=== PATIENT | male | born 1960 | race Caucasian/White ===

== ENCOUNTER 2016-10-27 11:57 | Emergency (ER) | payer SELFPAY ==
[2016-10-27 11:58] VITALS: BP 180/94; PULSE 81; RESP 18; TEMP 98.5; O2SAT 98
== END 2016-10-27 13:31 | disposition left against medical advice (07) ==
LOC: NED 11:57
DX: Z53.21 Procedure and treatment not carried out due to patient leaving prior to being seen by health care provider (principal)
CPT/HCPCS: 99281

== ENCOUNTER 2016-11-02 12:41 | Inpatient (IN) | payer SELFPAY ==
[~2016-11-02] VITALS: Ht 177.8 cm; Wt 85.0 kg
[2016-11-02 12:44] VITALS: BP 159/68; PULSE 80; RESP 15; TEMP 98.4; O2SAT 99
--- NOTE | 2016-11-02 12:58 | PD ---
Physical Exam Time Seen by Provider: 12:57 Narrative 56 y/o male here for evaluation of L leg redness, pain, for 3 weeks. Sent from urgent care. Vital signs reviewed. Seen at triage desk. Awaiting bed placement. Data Data Last Documented VS Vital Signs Date Time Temp Pulse Resp B/P Pulse Ox O2 Delivery O2 Flow Rate FiO2 11/02/16 12:44 98.4 80 15 159/68 99 MDM Medical Record Reviewed: Yes Supervised Visit with LADONNA: Jeremy Richards Nov 02, 2016 12:58
[2016-11-02] MEDS ORDERED: PIPERACIL-TAZO 4.5 GM PREMIX 100 ML IV STA (14:41)
[2016-11-02] MEDS ORDERED: VANCOMYCIN INJ 1,000 MG in SODIUM CHLOR 0.9% 250 ML INJ 250 ML IV STA (14:41)
[2016-11-02] MEDS ORDERED: DIVA250ER PO (14:42)
[2016-11-02] MEDS ORDERED: SERO25TA PO (14:42)
[2016-11-02 15:34] LABS: AUTOMATED NEUTROPHIL # 6.3 TH/MM3 (1.8-7.7); BASOPHIL # 0.1 TH/MM3 (0-0.2); BASOPHIL % 0.8 % (0.0-2.0); EOSINOPHIL # 0.4 TH/MM3 (0-0.4); EOSINOPHIL % 3.4 % (0.0-4.0); HEMO FLAGS DIFF FINAL; LYMPH % 24.2 % (9.0-44.0); LYMPHOCYTE # 2.6 TH/MM3 (1.0-4.8); MEAN CELL VOLUME 89.8 FL (80.0-100.0); MEAN CORPUSCULAR HEMOGLOBIN 31.1 PG (27.0-34.0); MEAN CORPUSCULAR HGB CONC 34.6 % (32.0-36.0); MONO % 11.7 % (0.0-8.0); NEUT % 59.9 % (16.0-70.0); PLATELET COUNT 275 TH/MM3 (150-450); RED BLOOD COUNT 5.23 MIL/MM3 (4.50-5.90); RED CELL DISTRIBUTION WIDTH 14.2 % (11.6-17.2); WHITE BLOOD COUNT 10.6 TH/MM3 (4.0-11.0)
--- NOTE | 2016-11-02 15:40 | RADRPT ---
EXAM DATE/TIME: 11/02/2016 14:56 [facility] COMPARISON: No previous studies available for comparison. INDICATIONS : Swelling in left leg with redness and pain. MEDICAL HISTORY : Brain aneurysm. Cellulitis in left leg. SURGICAL HISTORY : Right knee replacement. ENCOUNTER: Initial ACUITY: 3 weeks PAIN SCORE: 5/10 LOCATION: Left leg. TECHNIQUE: Venous ultrasound of the leg was performed from the inguinal ligament to the proximal calf. Real-patrick e, color Doppler and spectral tracing, compression and augmentation techniques were used. FINDINGS: There is normal compressibility of the deep venous system from the inguinal region to the proximal ca lf. No echogenic clot is seen in the lumen of the common femoral, femoral, popliteal, and posterior tibial veins. There is a normal response of the venous system to proximal and distal augmentation an d respiration. CONCLUSION: Normal examination. Go Li MD on November 02, 2016 at 15:39 Board Certified Radiologist. This report was verified electronically.
[2016-11-02 15:51] LABS: APTT (PATIENT) 28.2 SEC (24.3-30.1); INTERNATIONAL NORMALIZED RATIO 0.9 RATIO; PROTHROMBIN TIME - PATIENT 10.4 SEC (9.8-11.6)
--- NOTE | 2016-11-02 15:51 | PD ---
HPI Chief Complaint: Skin Problem Time Seen by Provider: 14:30 Travel History International Travel<30 days: No Contact w/Intl Traveler<30days: No Traveled to known affect area: No History of Present Illness HPI Patient is a 56-year-old male presenting to emergency room for evaluation of left lower leg redness and swelling. Patient states he hit it 3 weeks ago, he has been cleaning it with peroxide and topical antibiotic ointment however it continues to get more red and swollen so he presented to an urgent care clinic in [place] who referred him to the emergency department. Patient states the pain is a 7 out of 10 and describes as aching and throbbing. He denies any fever, chills, weakness, drainage. Patient's past medical history significant for bipolar disorder, brain aneurysm. He is a daily tobacco user. PFSH Past Medical History Bipolar Disorder: Yes Depression: Yes Neurologic: Yes (BRAIN ANEURYSM ) Tetanus Vaccination: > 5 Years Influenza Vaccination: No Past Surgical History Other Surgery: Yes (knee replacement) Social History Alcohol Use: No Tobacco Use: Yes Substance Use: Yes (CANNABIS ) Allergies-Medications (Allergen,Severity, Reaction): Coded Allergies: Novocain (Verified Allergy, Unknown, 11/02/16) Reported Meds & Prescriptions Reported Meds & Active Scripts Active Reported Seroquel (Quetiapine Fumarate) 25 Mg Tab 25 Mg PO PRN Depakote ER (Divalproex Sodium) 250 Mg Mark 750 Mg PO DAILY Review of Systems Except as stated in HPI: all other systems reviewed are Neg General / Constitutional: No: Fever, Chills HENT: No: Headaches Cardiovascular: No: Chest Pain or Discomfort Respiratory: No: Shortness of Breath Gastrointestinal: No: Nausea, Vomiting, Abdominal Pain Musculoskeletal: Positive: Myalgias, Edema, Pain Skin: Positive Change in Pigmentation, Positive Lesions Physical Exam Narrative GENERAL: Well-developed, well-nourished, alert male. Resting in no acute distress. SKIN: Warm and dry. Left lower leg has a scabbed lesion to the anterior aspect just distal to the knee, a second scabbed lesion on the proximal lateral aspect of the left lower leg, and slightly distal to that is a fourth scabbed lesion. Left lower leg is warm, erythematous, edematous. Left pedal pulse is audible with Doppler. No exudate or drainage noted from wound. HEAD: Atraumatic. Normocephalic. EYES: Pupils equal and round. No scleral icterus. No injection or drainage. ENT: No nasal bleeding or discharge. Mucous membranes pink and moist. NECK: Trachea midline. No JVD. CARDIOVASCULAR: Regular rate and rhythm. RESPIRATORY: No accessory muscle use. Clear to auscultation. Breath sounds equal bilaterally. GASTROINTESTINAL: Abdomen soft, non-tender, nondistended. Hepatic and splenic margins not palpable. MUSCULOSKELETAL: Extremities without clubbing, cyanosis. No obvious deformities. Negative Homans sign on the left. NEUROLOGICAL: Awake and alert. No obvious cranial nerve deficits. Motor grossly within normal limits. Five out of 5 muscle strength in the arms and legs. Normal speech. PSYCHIATRIC: Appropriate mood and affect; insight and judgment normal. Data Data Last Documented VS Vital Signs Date Time Temp Pulse Resp B/P Pulse Ox O2 Delivery O2 Flow Rate FiO2 11/02/16 16:10 75 21 176/88 97 Room Air 11/02/16 12:44 98.4 Orders Complete Blood Count With Diff (11/02/16 14:41) Comprehensive Metabolic Panel (11/02/16 14:41) Prothrombin Time / Inr (Pt) (11/02/16 14:41) Act Partial Throm Time (Ptt) (11/02/16 14:41) Lactic Acid Sepsis Protocol (11/02/16 14:41) Blood Culture (11/02/16 14:41) Ecg Monitoring (11/02/16 14:41) Iv Access Insert/Monitor (11/02/16 14:41) Oximetry (11/02/16 14:41) Piperacil-Tazo 4.5 Gm Premix (Zosyn 4.5 (11/02/16 14:41) Vancomycin Inj (Vancomycin Inj) (11/02/16 14:41) Westergren Sedimentation Rate (11/02/16 14:41) C-Reactive Protein (Crp) (11/02/16 14:41) Us Leg Venous Doppler (11/02/16 ) Tibia/Fibula (Ap/Lat) (11/02/16 ) Admit Order (Ed Use Only) (11/02/16 17:04) Labs Laboratory Tests Test 11/02/16 15:00 White Blood Count 10.6 TH/MM3 Red Blood Count 5.23 MIL/MM3 Hemoglobin 16.3 GM/DL Hematocrit 47.0 % Mean Corpuscular Volume 89.8 FL Mean Corpuscular Hemoglobin 31.1 PG Mean Corpuscular Hemoglobin 34.6 % Concent Red Cell Distribution Width 14.2 % Platelet Count 275 TH/MM3 Mean Platelet Volume 7.9 FL Neutrophils (%) (Auto) 59.9 % Lymphocytes (%) (Auto) 24.2 % Monocytes (%) (Auto) 11.7 % Eosinophils (%) (Auto) 3.4 % Basophils (%) (Auto) 0.8 % Neutrophils # (Auto) 6.3 TH/MM3 Lymphocytes # (Auto) 2.6 TH/MM3 Monocytes # (Auto) 1.2 TH/MM3 Eosinophils # (Auto) 0.4 TH/MM3 Basophils # (Auto) 0.1 TH/MM3 CBC Comment DIFF FINAL Differential Comment Erythrocyte Sedimentation Rate 11 mm/hr Prothrombin Time 10.4 SEC Prothromb Time International 0.9 RATIO Ratio Activated Partial 28.2 SEC Thromboplast Time Sodium Level 138 MEQ/L Potassium Level 4.0 MEQ/L Chloride Level 103 MEQ/L Carbon Dioxide Level 27.5 MEQ/L Anion Gap 8 MEQ/L Blood Urea Nitrogen 17 MG/DL Creatinine 0.66 MG/DL Estimat Glomerular Filtration 125 ML/MIN Rate Random Glucose 100 MG/DL Lactic Acid Level 1.2 mmol/L Calcium Level 8.6 MG/DL Total Bilirubin 0.3 MG/DL Aspartate Amino Transf 19 U/L (AST/SGOT) Alanine Aminotransferase 32 U/L (ALT/SGPT) Alkaline Phosphatase 119 U/L C-Reactive Protein 2.59 MG/DL Total Protein 7.7 GM/DL Albumin 3.5 GM/DL MDM Medical Decision Making Medical Screen Exam Complete: Yes Emergency Medical Condition: Yes Interpretation(s) Last Impressions Lower Extremity Ultrasound 11/02/16 0000 Signed Impressions: Service Date/Time: Wednesday, November 02, 2016 14:56 - CONCLUSION: Normal examination. Go Li MD Laboratory Tests Test 11/02/16 15:00 White Blood Count 10.6 TH/MM3 Red Blood Count 5.23 MIL/MM3 Hemoglobin 16.3 GM/DL Hematocrit 47.0 % Mean Corpuscular Volume 89.8 FL Mean Corpuscular Hemoglobin 31.1 PG Mean Corpuscular Hemoglobin 34.6 % Concent Red Cell Distribution Width 14.2 % Platelet Count 275 TH/MM3 Mean Platelet Volume 7.9 FL Neutrophils (%) (Auto) 59.9 % Lymphocytes (%) (Auto) 24.2 % Monocytes (%) (Auto) 11.7 % Eosinophils (%) (Auto) 3.4 % Basophils (%) (Auto) 0.8 % Neutrophils # (Auto) 6.3 TH/MM3 Lymphocytes # (Auto) 2.6 TH/MM3 Monocytes # (Auto) 1.2 TH/MM3 Eosinophils # (Auto) 0.4 TH/MM3 Basophils # (Auto) 0.1 TH/MM3 CBC Comment DIFF FINAL Differential Comment Erythrocyte Sedimentation Rate 11 mm/hr Prothrombin Time 10.4 SEC Prothromb Time International 0.9 RATIO Ratio Activated Partial 28.2 SEC Thromboplast Time Sodium Level 138 MEQ/L Potassium Level 4.0 MEQ/L Chloride Level 103 MEQ/L Carbon Dioxide Level 27.5 MEQ/L Anion Gap 8 MEQ/L Blood Urea Nitrogen 17 MG/DL Creatinine 0.66 MG/DL Estimat Glomerular Filtration 125 ML/MIN Rate Random Glucose 100 MG/DL Lactic Acid Level 1.2 mmol/L Calcium Level 8.6 MG/DL Total Bilirubin 0.3 MG/DL Aspartate Amino Transf 19 U/L (AST/SGOT) Alanine Aminotransferase 32 U/L (ALT/SGPT) Alkaline Phosphatase 119 U/L C-Reactive Protein 2.59 MG/DL Total Protein 7.7 GM/DL Albumin 3.5 GM/DL Vital Signs Date Time Temp Pulse Resp B/P Pulse Ox O2 Delivery O2 Flow Rate FiO2 11/02/16 12:44 98.4 80 15 159/68 99 Differential Diagnosis Cellulitis versus sepsis versus DVT versus osteomyelitis versus other Narrative Course Patient is a 56-year-old male presenting for evaluation of left lower leg redness and swelling that has been ongoing and worsening over the last 2-3 weeks. Vital signs are stable, labs and imaging ordered and pending. IV access established, patient placed on telemetry monitoring and continuous pulse oximetry. Left pedal pulse was audible with Doppler. Ultrasound the left lower leg is negative for DVT Blood cultures ordered and pending CBC with a white count of 10.6 Sedimentation rate is 11 CRP 2.59 Lactic acid 1.2 Chemistry is otherwise unremarkable with no acute findings. Patient was given Zosyn and vancomycin empirically. Discussed with residents who accepted admission. Admit orders placed. Patient is agreeable. Diagnosis Primary Impression: Cellulitis Qualified Code: L03.116 - Cellulitis of left lower extremity Admitting Information Admitting Physician Requests: Admit Condition: Stable Gina Padron CODE NUMBER STAMPER Nov 02, 2016 15:51
[2016-11-02 15:54] LABS: ALKALINE PHOSPHATASE 119 U/L (45-117); TOTAL BILIRUBIN ADULT 0.3 MG/DL (0.2-1.0)
[2016-11-02 15:58] LABS: ALT (GPT) 32 U/L (12-78); ANION GAP 8 MEQ/L (5-15); AST (GOT) 19 U/L (15-37); BICARBONATE 27.5 MEQ/L (21.0-32.0); BLOOD UREA NITROGEN 17 MG/DL (7-18); CHLORIDE 103 MEQ/L (98-107); GLOMERULAR FILTRATION RATE 125 ML/MIN (>89); SODIUM (NA) 138 MEQ/L (136-145)
[2016-11-02 16:10] VITALS: BP 176/88; PULSE 75; RESP 21; O2SAT 97
[2016-11-02] MEDS ORDERED: Vancomycin Consult Pharmacy 1 EA OTHER SCH (17:15)
[2016-11-02] MEDS ORDERED: KETOROLAC TROMETHAMINE 30 MG/ML (IVP) VIAL IVP PRN (17:15)
[2016-11-02] MEDS ORDERED: ACETAMINOPHEN 500 MG CPLT PO PRN (17:15)
[2016-11-02] MEDS ORDERED: ONDANSETRON HCL 4 MG/2 ML VIAL IVP PRN (17:15)
[2016-11-02] MEDS ORDERED: BISACODYL 10 MG SUPP RECTAL PRN (17:15)
[2016-11-02] MEDS ORDERED: SENNOSIDES 8.6 MG TAB PO PRN (17:15)
[2016-11-02] MEDS ORDERED: TEMAZEPAM 15 MG CAP PO PRN (17:15)
[2016-11-02] MEDS ORDERED: MAGNESIUM HYDROXIDE SUSP 30 ML CUP PO PRN (17:15)
[2016-11-02] MEDS ORDERED: SODIUM CHLORIDE 0.9% FLUSH 10 ML FLUSH IV FLUSH PRN (17:15)
[2016-11-02] MEDS ORDERED: LACTULOSE SYRUP 20 GM/30 ML CUP PO PRN (17:15)
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
--- NOTE | 2016-11-02 17:40 | RADRPT ---
EXAM DATE/TIME: 11/02/2016 17:18 [facility] COMPARISON: No previous studies available for comparison. INDICATIONS : Left lower leg pain and swelling. Possible infection. MEDICAL HISTORY : None. SURGICAL HISTORY : None. ENCOUNTER: Initial ACUITY: 2 weeks PAIN SCORE: 10/10 LOCATION: Left lower leg. FINDINGS: Two view examination of the left tibia demonstrates no evidence of fracture or dislocation. Bony min eralization is normal. The soft tissue structures are swollen distally. CONCLUSION: 1. Soft tissue swelling left leg. No bony abnormality identified. Jonathan Padron MD on November 02, 2016 at 17:38 Board Certified Radiologist. This report was verified electronically.
[2016-11-02] MEDS ORDERED: cloNIDine HCL 0.1 MG TAB PO PRN (18:15)
[2016-11-02] MEDS: REMOVE OLD PATCH T-DERMAL SCH (21:00)
[2016-11-02] MEDS: DOCUSATE SODIUM 50 MG/SENNA 8.6 MG TAB PO SCH (21:00)
[2016-11-02 21:07] VITALS: BP 162/96; PULSE 76; RESP 20; TEMP 97.6; O2SAT 95
[2016-11-02] MEDS ORDERED: ACETAMINOPHEN 325 MG TAB PO PRN (21:15)
[2016-11-02] MEDS: VANCOMYCIN INJ 1,000 MG in SODIUM CHLOR 0.9% 250 ML INJ 250 ML IV SCH (23:50)
[2016-11-02] MEDS: HYDROCHLOROTHIAZIDE 12.5 MG CAP PO SCH (23:51)
[2016-11-02] MEDS: QUEtiapine FUMARATE 25 MG TAB PO SCH (23:51)
[2016-11-02] MEDS: HEPARIN SODIUM - SQ 10,000 UNITS/ML VIAL SQ SCH (23:54)
[2016-11-02] MEDS: SODIUM CHLORIDE 0.9% FLUSH 10 ML FLUSH IV FLUSH SCH (23:56)
[2016-11-03] VITALS: BP 136/79; PULSE 84; RESP 18; TEMP 98.4; O2SAT 95
[2016-11-03 07:13] LABS: AUTOMATED NEUTROPHIL # 5.3 TH/MM3 (1.8-7.7); BASOPHIL # 0.1 TH/MM3 (0-0.2); BASOPHIL % 0.8 % (0.0-2.0); EOSINOPHIL # 0.3 TH/MM3 (0-0.4); EOSINOPHIL % 3.4 % (0.0-4.0); HEMO FLAGS DIFF FINAL; LYMPHOCYTE # 2.9 TH/MM3 (1.0-4.8); MEAN CELL VOLUME 90.1 FL (80.0-100.0); MEAN CORPUSCULAR HEMOGLOBIN 30.9 PG (27.0-34.0); MEAN CORPUSCULAR HGB CONC 34.3 % (32.0-36.0); NEUT % 54.8 % (16.0-70.0); PLATELET COUNT 258 TH/MM3 (150-450); RED BLOOD COUNT 4.99 MIL/MM3 (4.50-5.90); RED CELL DISTRIBUTION WIDTH 14.1 % (11.6-17.2); WHITE BLOOD COUNT 9.6 TH/MM3 (4.0-11.0)
[2016-11-03 07:29] LABS: BICARBONATE 25.6 MEQ/L (21.0-32.0); POTASSIUM 3.8 MEQ/L (3.5-5.1)
[2016-11-03 08:00] VITALS: BP 136/86; PULSE 72; RESP 18; TEMP 96.2; O2SAT 95
[2016-11-03] MEDS: SODIUM CHLORIDE 0.9% FLUSH 10 ML FLUSH IV FLUSH SCH ×2 (08:38→20:43)
[2016-11-03] MEDS: DOCUSATE SODIUM 50 MG/SENNA 8.6 MG TAB PO SCH ×2 (08:39→20:47)
[2016-11-03] MEDS: HEPARIN SODIUM - SQ 10,000 UNITS/ML VIAL SQ SCH ×2 (08:39→17:02)
[2016-11-03] MEDS: QUEtiapine FUMARATE 25 MG TAB PO SCH (08:40)
[2016-11-03] MEDS: VANCOMYCIN INJ 1,000 MG in SODIUM CHLOR 0.9% 250 ML INJ 250 ML IV SCH ×2 (08:40→17:01)
[2016-11-03] MEDS: HYDROCHLOROTHIAZIDE 12.5 MG CAP PO SCH (08:46)
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
[2016-11-03] MEDS ORDERED: DIVALPROEX SODIUM E.R. 250 MG TAB PO SCH (09:00)
[2016-11-03] MEDS ORDERED: NICOTINE 21 MG/24 HR PATCH T-DERMAL SCH (09:00)
[2016-11-03 12:00] VITALS: BP 148/86; PULSE 80; RESP 18; TEMP 95.3; O2SAT 95
[2016-11-03] MEDS ORDERED: PHARMACY ORDERED LAB ONE (15:45)
[2016-11-03 16:00] VITALS: BP 154/88; PULSE 79; RESP 18; TEMP 97; O2SAT 98
--- NOTE | 2016-11-03 16:12 | PD.WCN.NOT ---
Wound Consult Description: Wounds to L anterior peraza and Lateral lower leg. Dry scabs to L lateral upper calf Communicated with: [facility] [address] [place] [address] and Call placed to Doctor Byrne for orders Recommendation: Please open wounds to L lateral lower leg and L anterior peraza with normal saline. Please apply single layer Xeroform just over opened wounds, not over periwound scab. Cover with dry 4x4 gauze pads and secure with rolled gauze and tape. Change dressings every other day or PRN if saturated or dislodged. Additional Information: Patient seen on [address] [place] [address] for evaluation of wound management to L leg. Patient L leg wounds noted open to air. Wound to L anterior peraza presents with 100% coverage dry dark red tissue. Periwound is noted with dry scab from 4 to 9 o' clock and erythema that is circumferential. Wound is dry with out active drainage or odor. Wound to L lateral lower leg also presents with 100% dark red dry tissue that is without active drainage or odor. Periwound also presents with scab and circumferential erythema. Wound culture obtained from L leg wound is positive for Rare WBC, and many gram positive cocci in pairs and clusters. Patient is being treated for infection with IV antibiotic Vancomycin. L L lower leg is noted edema. Scabs with periwound erythema also assessed on L lateral upper calf area. Cleansed open wounds to L lateral leg and anterior peraza with normal saline and applied single layer Xeroform just over open wounds and covered with dry 4x4 gauze pads. Secured dressing with rolled gauze and tape. Discussed the importance of elevating L lower extremity to reduce edema with patient. Patient verbalizes understanding and adherence with this. Jazz Deng [facility] Nov 03, 2016 16:12
[2016-11-03 20:00] VITALS: BP 130/85; PULSE 80; RESP 20; TEMP 96.6; O2SAT 97
[2016-11-03] MEDS: REMOVE OLD PATCH T-DERMAL SCH (20:45)
[2016-11-04] VITALS: BP 162/93; PULSE 81; RESP 20; TEMP 97.6; O2SAT 96
[2016-11-04] MEDS ORDERED: VANCOMYCIN INJ 1,250 MG in SODIUM CHLOR 0.9% 250 ML INJ 250 ML IV SCH ×2
[2016-11-04] MEDS: HEPARIN SODIUM - SQ 10,000 UNITS/ML VIAL SQ SCH (01:10)
[2016-11-04 07:02] LABS: AUTOMATED NEUTROPHIL # 5.4 TH/MM3 (1.8-7.7); BASOPHIL # 0.1 TH/MM3 (0-0.2); BASOPHIL % 0.6 % (0.0-2.0); EOSINOPHIL # 0.4 TH/MM3 (0-0.4); EOSINOPHIL % 4.3 % (0.0-4.0); HEMO FLAGS DIFF FINAL; LYMPH % 26.7 % (9.0-44.0); LYMPHOCYTE # 2.5 TH/MM3 (1.0-4.8); MEAN CELL VOLUME 89.5 FL (80.0-100.0); MEAN CORPUSCULAR HEMOGLOBIN 30.5 PG (27.0-34.0); MEAN CORPUSCULAR HGB CONC 34.1 % (32.0-36.0); MONO % 10.1 % (0.0-8.0); NEUT % 58.3 % (16.0-70.0); PLATELET COUNT 294 TH/MM3 (150-450); RED BLOOD COUNT 5.47 MIL/MM3 (4.50-5.90); WHITE BLOOD COUNT 9.2 TH/MM3 (4.0-11.0)
[2016-11-04 08:00] VITALS: BP 181/99; PULSE 75; RESP 18; TEMP 97.2; O2SAT 97
--- NOTE | 2016-11-04 10:27 | HHI.FPPN ---
Subjective Remarks Patient seen and examined. No acute events over night. He states that he believes his cellulitis has greatly improved in color, swelling, itching and pain. No other complaints of nausea, vomiting, fever, chills, chest pain, shortness of breath, abdominal pain, change in bowel habits, change in urinary habits. (Elan Savage MD R1) Objective Vitals Vital Signs Date Time Temp Pulse Resp B/P Pulse Ox O2 Delivery O2 Flow Rate FiO2 11/04/16 08:00 97.2 75 18 181/99 97 11/04/16 00:00 97.6 81 20 162/93 96 11/03/16 20:00 96.6 80 20 130/85 97 11/03/16 16:00 97.0 79 18 154/88 98 11/03/16 12:00 95.3 80 18 148/86 95 I/O 11/03/16 11/03/16 11/03/16 11/04/16 11/04/16 11/04/16 07:00 15:00 23:00 07:00 15:00 23:00 Intake Total 240 ml 400 ml 400 ml 240 ml Output Total 100 ml Balance 240 ml 400 ml 300 ml 240 ml Intake Oral 240 ml 400 ml 400 ml 240 ml Output Urine Total 100 ml # Voids 2 12 3 # Bowel Movements 0 1 (Elan Savage MD R1) Result Diagram: 11/04/16 0618 11/03/16 0550 Imaging Last Impressions Tibia/Fibula X-Ray 11/02/16 0000 Signed Impressions: Service Date/Time: Wednesday, November 02, 2016 17:18 - CONCLUSION: 1. Soft tissue swelling left leg. No bony abnormality identified. Jonathan Padron MD Lower Extremity Ultrasound 11/02/16 0000 Signed Impressions: Service Date/Time: Wednesday, November 02, 2016 14:56 - CONCLUSION: Normal examination. Go Li MD Objective Remarks CONSTITUTIONAL/GEN: normally nourished, in NAD. EYES: conjunctiva normal, PERRLA, EOMI. ENT: Mouth and pharynx normal. LUNGS: Clear to auscultation b/l, no wheeze/rales/rhonchi CARDIOVASCULAR: RR without murmur or gallop. No significant edema. GI/ABD: soft without masses, without organomegaly. : no CVA tenderness NEURO: No focal deficits. SKIN: Color normal, no rashes noted other than on left leg. Superficial wounds on anterior and medial aspect of left lower leg, covered with eschar. Surrounding edema and erythema, greatly improved today. Erythema and swelling in left foot, improved from admission. HEME/LYMPH: no bruising, petechia or significant adenopathy MUSC: Extremities are normal in appearance other than skin changes noted above. No calf tenderness. PSYCH/MENTAL STATUS: Alert and oriented x 3. (Elan Savage MD R1) A/P Assessment and Plan This a 56-year-old male with past medical history significant for recovering alcoholic, bipolar depressive type, and hypertension. Being admitted for left lower leg cellulitis Discharge Planning Following ID consult for possible Dalvance administration (Elan Savage MD R1) Attending Attestation Patient seen and examined. Case reviewed and discussed with the resident team. Agree with plan of care as discussed with me and documented in the resident note. (Damion Dyson MD) Problem List: (1) Cellulitis Status: Acute Plan: Patient found to have cellulitis on physical exam. Tried getting treatment in urgent care and was sent to the hospital. Ultrasound performed negative for DVT * vancomycin 1250mg q8 * Keep leg elevated * Blood culture no growth to date * Wound cultures Gram positive in clusters and pairs * Wound care following * Tylenol 600 mg by mouth every 4 hours when necessary pain 1-10 or fever * Toradol 30 mg IV every 6 hours when necessary breakthrough pain * Consulted ID to determine Dalvance candidacy (2) Hypertension Status: Acute Plan: Patient reports history of hypertension. Denies being on any medications. * HCTZ 12 mg daily and titrate as needed * Clonidine per protocol (3) Bipolar disorder Status: Acute Plan: Patient reports history of bipolar disorder * Continue home medications of Depakote 750 mg daily * Continue home medication of Seroquel 25 mg (4) Nutrition, metabolism, and development symptoms Status: Acute Plan: Diet: Regular diet Fluids: Taking in adequate fluids Monitor electrolytes place currently Out of bed ad mahesh. Vitals every 4 DVT prophylaxis with SCDs and heparin every 8 CODE STATUS: DNR Disposition: Pending improvement of left lower leg cellulitis and transition to by mouth antibiotics (Elan Savage MD R1) Problem Qualifiers (1) Cellulitis: Elna Savage MD R1 Nov 04, 2016 10:27 Damion Dyson MD Nov 05, 2016 14:04
--- NOTE | 2016-11-04 11:06 | PD.AMA ---
Against Medical Advice Note Discharge Disposition: Against Medical Advice Pt Condition on Discharge: Stable AMA Statement Patient Rell Kelley has decided to leave the hospital against medical advice. This patient has the capacity to refuse care and understands the risks of leaving, including permanent disability and/or , and has had an opportunity to ask questions about his condition. 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 Uli Solorio MD R3 Nov 04, 2016 11:06
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
[2016-11-04] MEDS ORDERED: PHARMACY ORDERED LAB ONE (23:45)
== END 2016-11-04 10:12 | disposition left against medical advice (07) | DRG 603 ==
LOC: NEPC 12:41 → NEDA 17:05 → N07B 20:27
PROVIDERS: ADMIT Family Medicine; ATTEND Family Medicine
DX: L03.116 Cellulitis of left lower limb (principal); I67.1 Cerebral aneurysm, nonruptured; F31.9 Bipolar disorder, unspecified; F17.210 Nicotine dependence, cigarettes, uncomplicated; I10 Essential (primary) hypertension; Z96.651 Presence of right artificial knee joint; F10.21 Alcohol dependence, in remission; Z66 Do not resuscitate; B95.61 Methicillin susceptible Staphylococcus aureus infection as the cause of diseases classified elsewhere
CPT/HCPCS: 73590; 80048; 80053; 80202; 83605; 85025; 85610; 85652; 85730; 86140; 86403; 87040; 87070; 87186; 87205; 93971; 96365; 96368; J1644; J2543; J3370; J7050

== ENCOUNTER 2016-11-13 12:57 | Emergency (ER) | payer SELFPAY ==
[~2016-11-13] VITALS: Ht 177.8 cm; Wt 80.5 kg
[~2016-11-13 12:57] MED LIST: DIVA250ER PO; SERO25TA PO
[2016-11-13 12:58] VITALS: BP 185/88; PULSE 89; RESP 16; TEMP 98.4; O2SAT 99
[2016-11-13 13:19] VITALS: BP 162/93; PULSE 81; RESP 16; O2SAT 100
--- NOTE | 2016-11-13 13:49 | PD ---
HPI . headache x 1 year Chief Complaint: Headache Time Seen by Provider: 13:49 Travel History International Travel<30 days: No Contact w/Intl Traveler<30days: No Traveled to known affect area: No History of Present Illness HPI 56-year-old male here with complaints of headache for 1 year plus. Patient tells me that he's had a headache intermittently for the past year. He is being worked up by his primary care provider and had an MRI done in August. He has a follow-up with his primary care provider on November 16. He says he needs something for the pain as tylenol and ibuprofen are not working. He rates the pain as 7/10. It is in the front of his head. He does have some blurry vision that has also been going on for some time. He denies any other issues. PFSH Past Medical History Bipolar Disorder: Yes Depression: Yes Diabetes: No Neurologic: Yes (BRAIN ANEURYSM ) Past Surgical History Other Surgery: Yes (knee replacement) Social History Alcohol Use: No Tobacco Use: Yes Substance Use: Yes (CANNABIS medically) Allergies-Medications (Allergen,Severity, Reaction): Coded Allergies: procaine (Unverified Allergy, Unknown, 11/09/16) Reported Meds & Prescriptions Reported Meds & Active Scripts Active Reported Seroquel (Quetiapine Fumarate) 25 Mg Tab 25 Mg PO PRN Depakote ER (Divalproex Sodium) 250 Mg Mark 750 Mg PO DAILY Review of Systems General / Constitutional: No: Fever Eyes: Positive: Blurred Vision, No: Visual changes HENT: No: Headaches Cardiovascular: No: Chest Pain or Discomfort Respiratory: No: Shortness of Breath Gastrointestinal: No: Abdominal Pain Genitourinary: No: Dysuria Musculoskeletal: No: Pain Skin: No Rash Neurologic: Positive: Headache, No: Weakness Psychiatric: No: Depression Endocrine: No: Polydipsia Hematologic/Lymphatic: No: Easy Bruising Physical Exam Narrative GENERAL: AAO x 3, no acute distress, Well-nourished, well-developed patient. SKIN: Warm and dry. No visible rashes or bruising. HEAD: Normocephalic and atraumatic. EYES: No scleral icterus. No injection or drainage. EOM intact, PERRLA ENT: No nasal drainage noted. Mucous membranes pink. Airway patent. NECK: Supple, trachea midline. No JVD. no lymphadenopathy, full ROM CARDIOVASCULAR: Regular rate and rhythm without murmurs, gallops, or rubs. RESPIRATORY: Breath sounds equal bilaterally. No accessory muscle use. No rhonchi or rales. GASTROINTESTINAL: Abdomen soft, non-tender, nondistended. EXTREMITIES: No cyanosis or edema. BACK: Nontender without obvious deformity. No CVA tenderness. NEURO: CN II-12 intact, business office specialist strength normal b/l, UE and LE 5/5, no focal deficits, no gross abnormality PSYCH: AAO x 3, normal affect. Data Data Last Documented VS Vital Signs Date Time Temp Pulse Resp B/P Pulse Ox O2 Delivery O2 Flow Rate FiO2 11/13/16 13:20 16 100 Room Air 11/13/16 13:19 81 162/93 11/13/16 12:58 98.4 Orders Prochlorperazine Inj (Compazine Inj) (11/13/16 14:00) MDM Medical Decision Making Medical Screen Exam Complete: Yes Emergency Medical Condition: Yes Medical Record Reviewed: Yes Differential Diagnosis migraine, tension headache, cluster headache, brain tumor Narrative Course 56 yr old male here with c/o headache x 1 year. He is being worked up by his PCP. Neuro exam is unremarkable. It is possible he is having migraines. Compazine in the ED. After the compazine, he feels much better. He is thanking me. advised f/u with PCP. Patient verbalized understanding of instructions, questions were answered, and thanked me for their care. I advised them if their condition worsens, please return to the nearest emergency room for further care. Diagnosis Primary Impression: Headache Qualified Code: R51 - Chronic nonintractable headache, unspecified headache type Patient Instructions: General Instructions Additional Instructions: Follow-up with her primary care provider. Continue using the medications they have provided. Disposition: 01 DISCHARGE HOME Condition: Stable Jacqueline Galan Nov 13, 2016 13:49
[2016-11-13] MEDS ORDERED: PROCHLORPERAZINE INJ 10 MG/2 ML VIAL IM ONE (14:00)
== END 2016-11-13 14:48 | disposition home or self-care (01) ==
LOC: NEPD 12:57
DX: R51 Headache (principal); H53.8 Other visual disturbances; Z72.0 Tobacco use; Z86.59 Personal history of other mental and behavioral disorders; Z86.69 Personal history of other diseases of the nervous system and sense organs
CPT/HCPCS: 96372; 99284; J0780